=== PATIENT | male | born 1945 | race Caucasian/White ===

== ENCOUNTER 2017-02-23 19:30 | Inpatient (IN) | payer MEDICARE ==
[~2017-02-23] VITALS: Ht 175.3 cm; Wt 84.2 kg
[2017-02-23 19:29] VITALS: BP 198/80; PULSE 89; RESP 37; O2SAT 98
[~2017-02-23 19:30] MED LIST: ALBU18HF INHALATION; ALBU2.5V4 INHALATION; ASPI325T32 PO; CEFP200T3 PO; CHOL400T PO; FORM12CA IH; IPRA4AER IH; LIP40 PO; LISI-571 PO; LORA1TAB PO; METO25TA6 PO; OMEP20CA11 PO; PRE10 PO; SULF1TAB7 PO; SYMINH IH; ZIT250 PO
[2017-02-23] MEDS ORDERED: Albuterol 2.5 mg/3 mL Inhalation Solution NEB ONE (19:33)
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
[2017-02-23] MEDS ORDERED: Albuterol-Ipratropium 3 mL Inhalation Solution NEB ONE (19:40)
[2017-02-23] MEDS ORDERED: MethylprednisoLONE Sodium Succinate 62.5 mg/mL 2 mL Inj IVPUSH ONE (19:40)
[2017-02-23] MEDS ORDERED: Magnesium Sulf 2 Gm/50mL Water 2 GM in IV Premix 1 EACH IV ONE (19:40)
[2017-02-23] MEDS ORDERED: Azithromycin Inj 500 MG in Dextrose 5% w/Vial Mate 250 ML IV ONE ×2 (19:40→23:55)
[2017-02-23 19:46] VITALS: RESP 34; O2SAT 98
[2017-02-23 19:51] VITALS: PULSE 90; RESP 32; O2SAT 98
[2017-02-23 19:53] LABS: BASOPHILS % (AUTO) 0.3 % (0-3); EOSINOPHILS % (AUTO) 1.3 % (0-5); MONOCYTES % (AUTO) 8.8 % (4-12); Mean Corpuscular Hemoglobin 27.2 pg (27.0-35.0); Mean Corpuscular Volume 86.8 fL (81-100); NEUTROPHILS % (AUTO) 68.9 % (40-74); Platelet Count 197 bil/L (150-400)
--- NOTE | 2017-02-23 20:03 | ABG ---
DateTimeAnalyzed 19:55:00 -_ pH ____7.288 - 7.350 7.450 pCO2 ___62.9__ -mmHg 35.0 45.0 pO2 165 -mmHg 69.0 116 HCO3- ___29.2__ -mmol/L 22.0 26.0 ABE ____1.5__ -mmol/L -2.0 2.0 tHb ___13.4__ -g/dL 12.0 18.0 O2Hb ___97.1__ -% COHb ____0.7__ -% 0.0 1.5 MetHb ____1.0__ -% 0.4 1.5 sO2 ___98.8__ -% 25.0 FIO2 ___28.0__ -% CPAP ___12.0__ -cmH2O PEEP ____6.0__ -cmH2O Set_RR ___18.0__ -b/min Drawn By MM - Date/Time Notified____ 20:02:00 -_ Spontaneous_RR ___32.0__ -b/min Oxygen Device 1 ____BIPAP - Notified By MM - Notified Whom DR ANDELIN - B 758 -mmHg tO2 ___18.6__ -Vol% Lito test _Positive -
[2017-02-23 20:07] LABS: Magnesium 1.9 mg/dL (1.6-2.6)
[2017-02-23 20:18] LABS: TROPONIN T < 0.010 ug/L (0.0-0.011)
--- NOTE | 2017-02-23 20:19 | DRSVH ---
PROCEDURE: X-RAY CHEST ONE VIEW, PORTABLE ([id number]) INDICATIONS: SHORTNESS OF BREATH, wheezing TECHNIQUE: One view of the chest was acquired. COMPARISON: [facility], CR, XR CHEST 1VW (PORTABLE), 06/11/2016, 15:32. FINDINGS: Surgical changes and devices: None. Lungs and pleura: Chronic interstitial changes are present. Areas of nodularity in the upper lobes bi laterally are unchanged compared to prior exam. Hyperexpansion is present suggestive of COPD. Mediastinum: Mediastinal contours appear normal. Heart size is normal. Bones and chest wall: No suspicious bony lesions. Overlying soft tissues appear unremarkable. IMPRESSION: Chronic changes without acute pulmonary process. Dictated by: Amanda Brown M.D. on 02/23/2017 at 20:17 Approved by: Amanda Brown M.D. on 02/23/2017 at 20:17
[2017-02-23 21:15] VITALS: BP 131/65; PULSE 89; RESP 26; O2SAT 94
[2017-02-23] MEDS ORDERED: Ondansetron 2 mg/mL 2 mL Inj IVPUSH PRN (22:35)
[2017-02-23] MEDS ORDERED: Polyethylene Glycol (PEG) 17 Gm Powder PO PRN (22:35)
[2017-02-23] MEDS ORDERED: Alum-Mag Hydrox-Simeth 30 mL Suspension PO PRN (22:35)
[2017-02-23 23:31] VITALS: BP 133/69; PULSE 70; RESP 24; O2SAT 95
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
[2017-02-24] VITALS (16 sets, daily range): BP systolic 117–147; BP diastolic 69–77; PULSE 66–104; RESP 20–28; O2SAT 90–96
[2017-02-24] MEDS: Albuterol-Ipratropium 3 mL Inhalation Solution NEB SCH ×6 (00:30→21:28)
[2017-02-24] MEDS: Heparin 5,000 Unit/mL Inj SUBQ SCH ×3 (01:14→17:23)
--- NOTE | 2017-02-24 06:15 | NUR ---
Admit note Pt. received from ED to Room 2020 via gurney, transferred to bed on slider board. BiPap in place to support respiratory needs, RT at bedside. MD here to assess (Dr. Mcnamara). A/O, verbalizes needs clearly. Denies pain or discomfort. VSS. Tele:SR in 70's with IVCD.
[2017-02-24] MEDS: predniSONE 20 mg Tablet PO SCH (07:47)
[2017-02-24] MEDS ORDERED: predniSONE 20 mg Tablet PO SCH (08:30)
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
--- NOTE | 2017-02-24 19:21 | NUR ---
Oxygen/Activity Pt removed from Bipap by RT and placed on 2L NC. Pt sats in low 90s for this shift, pt also demonstrates pursed lip breathing, but states that he has no SOB or discomfort while he is at rest. Pt was encouraged to start to move around in bed. Pt agreed to sitting up at edge of bed to eat evening meal. At this writing pt had not received his evening meal. Nightshift RN was made aware of pt's plans.
[2017-02-25] MEDS: Albuterol-Ipratropium 3 mL Inhalation Solution NEB SCH ×3 (00:30→08:13)
[2017-02-25] MEDS: Heparin 5,000 Unit/mL Inj SUBQ SCH ×2 (00:49→08:30)
[2017-02-25 03:31] VITALS: BP 150/80; PULSE 79; RESP 24; O2SAT 97
[2017-02-25 04:19] LABS: BASOPHILS % (AUTO) 0.1 % (0-3); EOSINOPHILS % (AUTO) 0.1 % (0-5); MONOCYTES % (AUTO) 8.8 % (4-12); Mean Corpuscular Hemoglobin 26.9 pg (27.0-35.0); Mean Corpuscular Volume 84.8 fL (81-100); NEUTROPHILS % (AUTO) 75.1 % (40-74); Platelet Count 171 bil/L (150-400)
[2017-02-25 04:43] VITALS: PULSE 79; RESP 20; O2SAT 96
--- NOTE | 2017-02-25 05:45 | NUR ---
Respiratory/Activity A/O, denies pain or discomfort. Tolerating 2L NC, with Spo2 90-92% when awake. Continues purse lip breathing, indicates new accounts banking representative of normal baseline at home with Sp02 90-93%. Encouraged pt. to increase activity, up after meal to chair visiting - pt tolerates activity and no change in respiratory status. Rested for extended period. VSS. Tele: SR with IVCD, in 70's.
[2017-02-25] MEDS ORDERED: PRE20 PO (07:56)
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
[2017-02-25 08:13] VITALS: PULSE 74; RESP 24; O2SAT 92
[2017-02-25 08:52] VITALS: BP 150/71; PULSE 99; RESP 24; O2SAT 90
[2017-02-25] MEDS: predniSONE 20 mg Tablet PO SCH (08:55)
[2017-02-25 10:19] VITALS: PULSE 81
--- NOTE | 2017-02-25 11:32 | NUR ---
Social Work: Discharge/Multidisciplinary Rounds D: Pt discussed in multidisciplinary rounds; the patient is medically stable for discharge home with no social needs. Capacity for self-care reviewed; no concerns identified at this time. BOOT REPAIRER met with the patient at bedside to confirm discharge plan. patient states that he agrees with the plan to d/c home and stated to BOOT REPAIRER previously that his MIL is transporting him. Patient identifies no concerns about discharge. EMR reviewed; pt ambulating I to the bathroom. Patient uses a scooter at home but is capable of short distance ambulation. A: Pt who is I at baseline with all ADLs and self-care. P: Anticipate pt to discharge home today via POV and no sw needs. EVERETT Flor
--- NOTE | 2017-02-25 12:44 | NUR ---
DISCHARGE The pt left the unit at 1130 with his and a [employer]STRU[employer] transport. The pt left with all his belongings, including his packet of discharge paperwork. The pt verbalized understanding of all discharge teaching presented. The pt left the unit A&Ox3 with VSS.
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
== END 2017-02-25 11:56 | disposition home or self-care (01) | DRG 189 ==
LOC: SED 19:30 → PCC 23:08
PROVIDERS: ADMIT Hospitalist; ATTEND Hospitalist
PROC: 4A033R1 Measurement of Arterial Saturation, Peripheral, Percutaneous Approach (ICD-10-PCS; principal; 2017-02-23)
DX: J96.21 Acute and chronic respiratory failure with hypoxia (principal); J44.1 Chronic obstructive pulmonary disease with (acute) exacerbation; E87.2 Acidosis; T59.811A Toxic effect of smoke, accidental (unintentional), initial encounter; J70.5 Respiratory conditions due to smoke inhalation; Z99.81 Dependence on supplemental oxygen; Z79.52 Long term (current) use of systemic steroids; E78.5 Hyperlipidemia, unspecified; K21.9 Gastro-esophageal reflux disease without esophagitis; I25.10 Atherosclerotic heart disease of native coronary artery without angina pectoris; J96.22 Acute and chronic respiratory failure with hypercapnia

== ENCOUNTER 2017-03-08 17:36 | Inpatient (IN) | payer MEDICARE, MEDICAID ==
[~2017-03-08] VITALS: Ht 175.3 cm; Wt 88.4 kg
[2017-03-08] VITALS (8 sets, daily range): BP systolic 124–142; BP diastolic 55–77; PULSE 72–89; RESP 25–37; O2SAT 91–98
[~2017-03-08 17:36] MED LIST changes: -LIP40 PO; +PRE20 PO
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
[2017-03-08] MEDS ORDERED: Albuterol-Ipratropium 3 mL Inhalation Solution NEB ONE (18:20)
[2017-03-08] MEDS ORDERED: MethylprednisoLONE Sodium Succinate 62.5 mg/mL 2 mL Inj IVPUSH ONE (18:20)
[2017-03-08] MEDS ORDERED: Albuterol 2.5 mg/3 mL Inhalation Solution NEB ONE (18:20)
[2017-03-08 18:31] LABS: BASOPHILS % (AUTO) 0.5 % (0-3); EOSINOPHILS % (AUTO) 0.8 % (0-5); MONOCYTES % (AUTO) 8.3 % (4-12); Mean Corpuscular Hemoglobin 26.9 pg (27.0-35.0); Mean Corpuscular Volume 86.3 fL (81-100); NEUTROPHILS % (AUTO) 70.4 % (40-74); Platelet Count 163 bil/L (150-400)
--- NOTE | 2017-03-08 18:51 | DRSVH ---
PROCEDURE: X-RAY CHEST ONE VIEW, PORTABLE ([id number]) INDICATIONS: dyspnea TECHNIQUE: One view of the chest was acquired. COMPARISON: [facility], CR, XR CHEST 1VW (PORTABLE), 06/11/2016, 15:32. FINDINGS: Surgical changes and devices: None. Lungs and pleura: Right apical scarring is unchanged. Areas of nodular opacities within the lung base s are also unchanged. Mediastinum: Mediastinal contours appear normal. Heart size is normal. Bones and chest wall: No suspicious bony lesions. Overlying soft tissues appear unremarkable. IMPRESSION: No acute pulmonary process. Dictated by: Amanda Brown M.D. on 03/08/2017 at 18:50 Approved by: Amanda Brown M.D. on 03/08/2017 at 18:50
[2017-03-08 19:02] LABS: TROPONIN T < 0.010 ug/L (0.0-0.011)
[2017-03-08 20:58] LABS: APPEARANCE,URINE CLEAR (CLEAR,HAZY); COLOR,URINE YELLOW (YELLOW); OCCULT BLOOD,URINE NEGATIVE (NEGATIVE); PH,URINE 5.5 (5.0-8.0); UROBILINOGEN,URINE NORMAL (NORMAL)
[2017-03-08] MEDS ORDERED: Albuterol-Ipratropium 120 Spray 4 Gm Inhaler INHALATION PRN (21:25)
[2017-03-08] MEDS ORDERED: _Albuterol 2.5 mg/3 mL Neb NEB PRN (21:25)
[2017-03-08] MEDS ORDERED: Alum-Mag Hydrox-Simeth 30 mL Suspension PO PRN (21:25)
[2017-03-08] MEDS ORDERED: Ondansetron 2 mg/mL 2 mL Inj IVPUSH PRN (21:25)
[2017-03-08] MEDS ORDERED: LORazepam 1 mg Tablet PO PRN (21:25)
[2017-03-08] MEDS ORDERED: Polyethylene Glycol (PEG) 17 Gm Powder PO PRN (21:25)
[2017-03-08] MEDS ORDERED: Albuterol 2.5 mg/3 mL Inhalation Solution NEB PRN (21:33)
--- NOTE | 2017-03-08 22:06 | PCM.HPMED ---
Subjective Date of Service Mar 08, 2017 Primary Provider: Admitting Physician: Brandon Ko MD Primary Care Physician: Erick Chatterjee MD Attending Physician: Brandon Ko MD Chief Complaint: Shortness of Breath History of Present Illness: Patient is a 71 y/o male with past medical history of CAD, HTN, COPD with 2.5L home O2, and hyperlipidemia who presents after an episode of shortness of breath today. Patient reports he started feeling short of breath this morning at 11:00 while watching football at the local [employer]. Patient reports to have drank about 5 beers throughout the course of the day and when he was home at about 16:00, he became increasingly short of breath and felt weak and diaphoretic. Patient's called EMS. Patient denies any CP, cough , WOODALL, N/V/D, or urinary symptoms. He has 2.5L home O2 that he takes with him everywhere, and this was no longer helping him. Patient has been hospitalized multiple times secondary to COPD exacerbation, with most recently being two weeks ago. Patient has previously been intubated secondary to acute respiratory failure from COPD exacerbation, with the most recent being approximately two years ago. In the ED patient was given Albuterol Neb, Duoneb, and one dose of 125mg Solu- Medrol and placed on a BiPap FiO2 50%. Review of Systems: ROS reviewed and otherwise negative unless noted above. Allergies Coded Allergies: MUSHROOM (Verified Allergy, Unknown, hives, 12/23/15) onion (Verified Allergy, Unknown, bad heartburn, 12/23/15) Home Medications Aspirin (Aspirin) 325 Mg Tablet 325 MG PO DAILY Azithromycin (Zithromax) 250 Mg Tablet 500 MG PO MWF Budesonide/Formoterol 160-4.5 mcg Inh (Symbicort 160-4.5 mcg Inh) 1 Puff Inha 2 PUFF IH BID Cefpodoxime Proxetil (Cefpodoxime Proxetil) 200 Mg Tablet 200 MG PO BID Cholecalciferol (Vitamin D3) (Vitamin D3) 400 Unit Tablet 1,200 UNIT PO DAILY Formoterol Fumarate (Foradil) 12 Mcg Cap.w.dev 12 MCG IH BID Lisinopril (Lisinopril) 5 Mg Tablet 5 MG PO DAILY Metoprolol Tartrate (Metoprolol Tartrate) 25 Mg Tablet 12.5 MG PO BID Omeprazole (Omeprazole) 20 Mg Capsule.dr 20 MG PO DAILY Prednisone (PredniSONE) 10 Mg Tablet 10 MG PO DAILY Prednisone (PredniSONE) 20 Mg Tablet 60 MG PO DAILY Sulfamethoxazole/Trimeth 800-160 mg (Bactrim DS) 1 Each Tablet 1 TABLET PO BID PMH COPD on 2.5 L oxygen and chronic Prednisone history of respiratory failure secondary to COPD, with several previous hospital admissions MAC infection HTN CT in the 1993 rheumatic fever emphysema asthma Coronary artery disease GERD Hyperlipidemia Surgical History Cardiac stenting in the 1993 Family History Noncontributory Social History Hx Alcohol Use: Yes Alcoholic Drinks Per Day: approx 8 beers/week Hx Substance Use: No Hx Tobacco Use: Yes (one pack every 2 days) Smoking Status: Former Smoker (Quit 8 years ago. 57 years at 1.5 packs per day) Years of Smokin Living Arrangement: with Family Exam Vital Signs Vital Sign - Last Date Time Temp Pulse Resp B/P Pulse Ox O2 Delivery O2 Flow Rate FiO2 03/08/17 21:41 28 124/55 97 03/08/17 20:04 50 03/08/17 19:00 72 Nasal Cannula 4 03/08/17 17:47 36.7 Exam Constitutional: Awake, alert and oriented x3, no acute distress Head: normocephalic and atraumatic Eyes: pupils equal round and reactive to light, No scleral icterus Heart: regular rate and rhythm, no murmurs, rubs, or gallops. 1+ pitting edema bilaterally Lungs: Diffuse wheeze throughout, no rales or rhonchi. Patient on BiPap oxygen support ABD: soft, nontender, bowel sounds present throughout Musculoskeletal: moves all four extremities appropriately Neuro: CN II-XII intact. no focal deficits. Skin: warm, dry, no rash Psych: appropriate mood and affect. Lab and Diagnostics Labs Item Value Date Time Red Blood Count 4.54 mil/mm3 03/08/171814 Mean Corpuscular Volume 86.3 fL 03/08/171814 Mean Corpuscular Hemoglobin 26.9 pg L 03/08/171814 Mean Corpuscular Hemoglobin Concent 31.1 % L 03/08/171814 Red Cell Distribution Width 15.7 % H 03/08/171814 Neutrophils (%) (Auto) 70.4 % 03/08/171814 Lymphocytes (%) (Auto) 19.8 % 03/08/171814 Monocytes (%) (Auto) 8.3 % 03/08/171814 Eosinophils (%) (Auto) 0.8 % 03/08/171814 Basophils (%) (Auto) 0.5 % 03/08/171814 Lactic Acid Level 3.4 mmol/L H 03/08/171814 Estimat Glomerular Filtration Rate 76 mL/min 03/08/171814 Total Bilirubin 0.3 mg/dL 03/08/171814 Aspartate Amino Transf (AST/SGOT) 36 U/L 03/08/171814 Alanine Aminotransferase (ALT/SGPT) 32 U/L 03/08/171814 Alkaline Phosphatase 127 U/L 03/08/171814 Troponin T < 0.010 ug/L 03/08/171814 Pro-B-Type Natriuretic Peptide 1099 pg/mL H 03/08/171814 Total Protein 6.0 g/dL L 03/08/171814 Albumin 3.7 g/dL 03/08/171814 Procalcitonin 0.03 ng/mL 03/08/171814 Result Diagram: 03/08/17181403/08/171814 Microbiology Blood Cultures - Pending Resp PCR - pending Influenza - Pending X-Rays, CTs and MRIs PROCEDURE: X-RAY CHEST ONE VIEW, PORTABLE IMPRESSION: No acute pulmonary process. Dictated by: Amanda Brown M.D. on 03/08/2017 at 18:50 12-lead ECG NSR HR 72 Assessment & Plan Patient is a 71 y/o male with past medical history of CAD, HTN, COPD with 2.5L home O2, and hyperlipidemia who presents after an episode of shortness of breath today -Acute on Chronic Hypoxic Respiratory Failure, POA, Active, Stable - Patient came in with a RR of 36 and requiring 5L NC and needing to be transitioned to BiPap due to h/o COPD. - ABG shows pH 7.351 with hypercapnea 50.3 and an elevated bicarb of 27 - Continue BiPap - Given 125 Solumedrol IV in ED - Prednisone 60mg BID - Continue home Albuterol - DuoNebs PRN - Albuterol 1mg PRN - Continue home dose Advair -Acute Exacerbation of Chronic Obstructive Pulmonary Disease, POA, Active, Stable - Patient came in short of breath with increased need for ancillary oxygen and placed on BiPap in ED. Patient has been intubated for COPD exacerbations twice previously - Continue BiPap - Given 125 Solumedrol IV in ED - Prednisone 60mg BID - Continue home Albuterol - DuoNebs PRN - Albuterol 1mg PRN -Continue home dose Advair - Respiratory Viral PCR - Influenza screen - Azithromycin 500mg PO daily - ABGs PRN if clinical picture calls for them. - Acute Lactic Acidosis, POA, Stable, Active - Patient admitted with LA of 3.4, likely secondary to tissue hypoxia - Monitor LA and trend until normalized - treat underlying cause of respiratory failure - History of HTN, Chronic, Stable - Continue home dose of Lisinopril - Continue home dose of Metoprolol PATIENT IS FULL CODE Due to Complexity of case and level of care patient is admitted under inpatient status with an expected length of stay greater than 2 midnights. Pain Evaluation: Adequate Pain Control GI Prophylaxis: Proton Pump Inhibitor VTE Prophylaxis Indicated: Meets Criteria for Anticoag Therapy VTE Prophylaxis: Sub-Q Heparin (Unfractionated), SCDs VTE Mechanical Devices: Intermittant Pneumatic CD Resuscitation Status: CPR: Attempt Resuscitation Attending Statement The patient was seen and examined together with Dr. Zamora on 03/08 and I agree with the history, exam and plan as outlined in the note above. Jessee Zamora DO Mar 08, 2017 21:52 Brandon Ko MD Mar 09, 2017 06:29
[2017-03-08] MEDS ORDERED: Furosemide 10 mg/mL 4 mL Inj IVPUSH ONE (22:45)
--- NOTE | 2017-03-08 22:52 | ABG ---
DateTimeAnalyzed 22:43:00 -_ pH ____7.351 - 7.350 7.450 pCO2 ___50.3__ -mmHg 35.0 45.0 pO2 ___77.0__ -mmHg 80.0 100 HCO3- ___27.1__ -mmol/L 22.0 26.0 ABE ____1.3__ -mmol/L -2.0 2.0 tHb ___12.3__ -g/dL 12.0 18.0 O2Hb ___92.9__ -% COHb ____0.7__ -% 1.5 MetHb ____1.1__ -% 0.4 1.5 sO2 ___94.6__ -% 95.0 FIO2 ___30.0__ -% CPAP ___16.0__ -cmH2O PEEP ____6.0__ -cmH2O Set_RR ___14.0__ -b/min Drawn By MM - Date/Time Notified____ 22:51:00 -_ Spontaneous_RR ___25.0__ -b/min Oxygen Device 1 ____BIPAP - Notified By MM - Notified Whom DR RENAY - B 760 -mmHg tO2 ___16.1__ -Vol% Lito test N/A -
--- NOTE | 2017-03-08 23:09 | NUR ---
admit note: pt. admitted for increased sob, ground level fall, pt. has hx copd, was just hospitalized on 02-23-17 for similar resp. issues. Pt. currently on bipap sats 94% heart rate 80, also noted pt. has yellow, watery, discharge both eyes. Pt. states he has not had a cold recently. pt. just given one time dose 40mg iv lasix.
[2017-03-09] VITALS (12 sets, daily range): BP systolic 92–142; BP diastolic 51–82; PULSE 80–93; RESP 17–28; O2SAT 92–98
[2017-03-09] MEDS: Heparin 5,000 Unit/mL Inj SUBQ SCH ×3 (00:41→17:43)
[2017-03-09] MEDS: Albuterol-Ipratropium 3 mL Inhalation Solution NEB SCH ×4 (01:41→19:30)
[2017-03-09 02:35] LABS: Mean Corpuscular Hemoglobin 26.5 pg (27.0-35.0); Mean Corpuscular Volume 85.1 fL (81-100)
[2017-03-09] MEDS: Pantoprazole 20 mg ER24 Tablet PO SCH ×2 (08:29→20:18)
[2017-03-09] MEDS ORDERED: predniSONE 20 mg Tablet PO SCH ×4 (08:30→10:10)
[2017-03-09] MEDS ORDERED: predniSONE 10 mg Tablet PO SCH (08:30)
--- NOTE | 2017-03-09 10:20 | PCM.PNMED ---
Subjective Date of Service Mar 09, 2017 Subjective Patient seen and examined this morning. Resting comfortably in bed. in the room. Patient is doing some pursed lip breathing but saturating well on 2 L nasal cannula. No nursing concerns. Exam Vital Signs Vital Sign - Last Date Time Temp Pulse Resp B/P Pulse Ox O2 Delivery O2 Flow Rate FiO2 03/09/17 10:11 80 03/09/17 08:23 36.5 24 142/82 95 BiPAP 30 03/08/17 19:00 4 Intake and Output 03/08/17 03/08/17 03/09/17 Cumulative From/Thru 14:58 22:58 06:58 03/08/17 17:47 - 03/09/17 06:21 Intake Total 0 ml 0 ml 0 ml Output Total 1900 ml 1900 ml Balance 0 ml -1900 ml -1900 ml Intake Oral 0 ml 0 ml 0 ml Output Urine Total 1900 ml 1900 ml Exam General: No acute distress, well-developed, well-nourished, appropriately interactive HEENT: Normocephalic, atraumatic. External ears without defect. Neck: Supple with full range of motion. No jugular venous distension. Cardiovascular: Regular rate and rhythm with no murmurs, rubs, or gallops appreciated Pulmonary: Wheezes heard throughout, no crackles. Reduced air movement. Pursed lip breathing. Abdomen: Soft, nontender, nondistended. Extremities: Clubbing noted on fingernails. No cyanosis. Skin: Normal temperature, turgor, and texture; no rash, ulcers, or subcutaneous nodules appreciated. Neurological: Cranial nerves grossly intact. Normal muscle strength, tone, and bulk. Psychiatric: Normal mood and affect. Alert and oriented to person, place, and time. IVs and Medications Medications Reviewed: Medications were reviewed in detail Lab and Diagnostics Result Diagram: 03/09/1721903/09/17 022 Microbiology Blood Cultures - Pending Resp PCR - pending Influenza - Pending X-Rays, CTs and MRIs PROCEDURE: X-RAY CHEST ONE VIEW, PORTABLE IMPRESSION: No acute pulmonary process. Dictated by: Amanda Brown M.D. on 03/08/2017 at 18:50 12-lead ECG NSR HR 72 Additional Diagnostics DateTimeAnalyzed 22:43:00 -_ pH ____7.351 - 7.350 7.450 pCO2 ___50.3__ -mmHg 35.0 45.0 pO2 ___77.0__ -mmHg 80.0 100 HCO3- ___27.1__ -mmol/L 22.0 26.0 ABE ____1.3__ -mmol/L -2.0 2.0 tHb ___12.3__ -g/dL 12.0 18.0 O2Hb ___92.9__ -% COHb ____0.7__ -% 1.5 MetHb ____1.1__ -% 0.4 1.5 sO2 ___94.6__ -% 95.0 FIO2 ___30.0__ -% CPAP ___16.0__ -cmH2O PEEP ____6.0__ -cmH2O Set_RR ___14.0__ -b/min Drawn By MM - Date/Time Notified____ 22:51:00 -_ Spontaneous_RR ___25.0__ -b/min Oxygen Device 1 ____BIPAP - Notified By MM - Notified Whom DR RENAY - B 760 -mmHg tO2 ___16.1__ -Vol% Lito test N/A - Assessment & Plan Patient is a 71 y/o male with past medical history of CAD, HTN, COPD with 2.5L home O2, and hyperlipidemia who presented after an episode of shortness of breath -Acute on Chronic Hypoxic Respiratory Failure, POA, Active, Stable - Patient came in with a RR of 36 and requiring 5L NC and needing to be transitioned to BiPap due to h/o COPD. - ABG on 03/06/17 shows pH 7.351 with hypercapnea 50.3 and an elevated bicarb of 27 - Continue on nasal cannula 2 L. BiPAP as necessary. - Given 125 Solumedrol IV in ED - Prednisone 60 mg daily - DuoNebs every 6hrs - Albuterol 1mg PRN - Continue home dose Advair - Hold home Spiriva as patient is receiving this via duo nebs -Acute Exacerbation of Chronic Obstructive Pulmonary Disease, POA, Active, Stable - Patient came in short of breath with increased need for ancillary oxygen and placed on BiPap in ED. Patient has been intubated for COPD exacerbations twice previously - Given 125 Solumedrol IV in ED - Continue home Albuterol - DuoNebs q 6 hours - Albuterol 1mg PRN - Continue home dose Advair - Respiratory Viral PCR - Influenza screen - Azithromycin 500mg PO daily - Mucinex every 12 hours - ABGs PRN if clinical picture calls for them. - Acute Lactic Acidosis, POA, resolved - Patient admitted with LA of 3.4, likely secondary to tissue hypoxia, 1.9 on - treat underlying cause of respiratory failure - History of HTN, Chronic, Stable - Continue home dose of Lisinopril - Continue home dose of Metoprolol PATIENT IS FULL CODE GI Prophylaxis: Proton Pump Inhibitor VTE Prophylaxis: Sub-Q Heparin (Unfractionated), SCDs VTE Mechanical Devices: Intermittant Pneumatic CD Resuscitation Status: CPR: Attempt Resuscitation Attending Statement The patient was seen and examined together with Dr. Marsh on 03/09/17 and I have added additional information to the note above. Francois Marsh DO Mar 09, 2017 10:20 Eli Thomas DO Mar 09, 2017 12:31
--- NOTE | 2017-03-09 11:29 | NUR ---
Social Work: Initial Assessment/Multidisciplinary Rounds D: Per EMR review, pt is a 71 year old male admitted for COPD exacerbation. Pt is Medicare with [facility] and [facility] benefits. Pt has no LTC or supplemental insurance. Pt states he wants to use his Medicare insurance. PCP is Erick Chatterjee MD. NOK is María Rizzo, , . Advanced directives not complete- pt declined information and states he received it at last admission/ NO RA Score entered at this time. Pt is a readmission and was discharged home from [facility] on 02/25 with no sw needs. Pt discussed in Multidisciplinary rounds. Capacity for self care discussed; no concerns or needs identified at this time. HYDRO ELECTRIC STATION OPERATOR met with the patient at bedside. Social work/dcp role explained, contact information and discharge planning checklist provided. See initial assessment. Pt lives alone, in a single story apartment in [place]. Patient is from his but states she is still supportive and is his NOK/identified support person. Pt still uses an electric scooter for mobility but is I with transfers and all ADLs. Pt is able to ambulate short distances I. Patient has never require SNF but has a history with [facility] for RN and PT. Patient anticipates no discharge needs and states a family member will transport him home. The patient's scooter is not at bedside. Patient states he can transfer to the car and get into his house without the use of the scooter. A: Pt who is I at baseline and lives alone in . P: Anticipate pt to discharge home via POV once medically stable; HYDRO ELECTRIC STATION OPERATOR to continue to follow to assess for unmet needs. EVERETT Flor Addendum: 03/09/17 at 1132 by LUIS HERNANDEZ Amended: Links added.
[2017-03-09] MEDS: Fluticasone-Salmeterol 500-50 Inhaler INHALATION SCH ×2 (11:39→20:20)
--- NOTE | 2017-03-09 18:33 | NUR ---
Resp/Diaphoresis Pt weaned from Bipap this morning to 2.5L NC. Pt sats 95-96% at that dosage. Pt O2 decreased to 1.5L NC as pt is CO2 retainer. Pt's O2 sats decreased to 92-94%. Pt displays no dyspnea at rest. Pt has been on bedrest for this shift. Pt states that he has recently been experiencing "hot flashes" he does not understand why. Pt states that he has discussed these episodes with his PCP. During afternoon assessment pt stated that he was having a hot flash, pt was noted to have become mildly diaphoretic, VSS.
[2017-03-09] MEDS: guaiFENesin 600 mg ER12 Tablet PO SCH (20:18)
[2017-03-10] MEDS: Heparin 5,000 Unit/mL Inj SUBQ SCH ×2 (00:52→10:08)
--- NOTE | 2017-03-10 01:06 | NUR ---
BP/Held Metoprolol/Home Meds BP low 90s/ low 50s at start of shift, pt denies symptoms. HS metoprolol held, aware. Pt states either his home lisinopril or metoprolol were recently DC'd. Pt states he will verify which one w/ his in the morning as these both continue on his med list.
[2017-03-10 02:46] VITALS: RESP 20; O2SAT 96
[2017-03-10] MEDS: Albuterol-Ipratropium 3 mL Inhalation Solution NEB SCH ×2 (02:46→08:49)
[2017-03-10 04:30] VITALS: BP 108/64; PULSE 98; RESP 20; O2SAT 94
--- NOTE | 2017-03-10 05:32 | ABG ---
DateTimeAnalyzed 05:24:00 -_ pH ____7.443 - 7.350 7.450 pCO2 ___47.5__ -mmHg 35.0 45.0 pO2 ___65.6__ -mmHg 80.0 100 HCO3- ___32.0__ -mmol/L 22.0 26.0 ABE ____7.2__ -mmol/L -2.0 2.0 tHb ___11.7__ -g/dL 12.0 18.0 O2Hb ___91.2__ -% COHb ____0.9__ -% 1.5 MetHb ____1.0__ -% 0.4 1.5 sO2 ___92.9__ -% 95.0 FIO2 ___28.0__ -% Drawn By MM - Date/Time Notified____ 05:32:00 -_ Liter_Flow ____2.0__ -L/min Oxygen Device 1 __CANNULA - Notified By MM - Notified Whom DR NAYE - B 761 -mmHg tO2 ___15.0__ -Vol% Lito test _Positive -
[2017-03-10 05:46] LABS: Mean Corpuscular Hemoglobin 26.4 pg (27.0-35.0); Mean Corpuscular Volume 84.3 fL (81-100)
[2017-03-10] MEDS ORDERED: predniSONE 20 mg Tablet PO SCH (08:30)
[2017-03-10] MEDS ORDERED: 0.9% Sodium Chloride 1,000 ML IV SCH (08:35)
--- NOTE | 2017-03-10 08:45 | NUR ---
[facility] and this patient is non service connected but holds MCR A B and DSHS
[2017-03-10 08:48] VITALS: PULSE 105; RESP 24; O2SAT 91
[2017-03-10 09:27] VITALS: BP 105/50; PULSE 90; RESP 28; O2SAT 91
[2017-03-10] MEDS: Pantoprazole 20 mg ER24 Tablet PO SCH (10:01)
[2017-03-10] MEDS: Fluticasone-Salmeterol 500-50 Inhaler INHALATION SCH (10:01)
[2017-03-10] MEDS: guaiFENesin 600 mg ER12 Tablet PO SCH (10:02)
[2017-03-10] MEDS ORDERED: PRE10 PO (11:06)
--- NOTE | 2017-03-10 11:18 | PCM.DIMED ---
Francois Marsh DO 03/10/17 1114: Discharge Instructions Date of Service Mar 10, 2017 Dates of Hospitalization Mar 08, 2017 at 21:34 Discharge Diagnosis Discharge Diagnosis COPD exacerbation Hypertension Medication Instructions Additional med instructions We are sending you home with a taper of prednisone. Start by taking 6 pills a day, which is 60 mg. Reduce the quantity by 1 pill every 3 days until they are gone. After this he can resume your normal daily prednisone dose. Continue to take your other regularly prescribed medications as directed including your azithromycin. Test Results Test Results Your chest x-ray was consistent with a COPD exacerbation. Diet Discharge Diet: Heart Healthy Activity Discharge Activity: Limited until seen by PCP Call your provider Call your provider for: Shortness of breath, Bleeding, Chest pain, Vomitting, Excessive diarrhea, Weakness (unilateral) Patient Instructions Patient Instructions Please follow-up with your primary care physician in 1-2 weeks. Continue your home medications, and seek medical attention if you start to have worsening shortness of breath, chest pain, dizziness. Follow-up Provider: AYAKA JEFF MD Follow-up with PCP in: 1 week Jono Mcdaniel DO 03/11/17 0725: Discharge Instructions Attending's Statement Read and agree Francois Marsh DO Mar 10, 2017 11:14 Jono Mcdaniel DO Mar 11, 2017 07:25
--- NOTE | 2017-03-10 11:29 | PCM.DC.MED ---
Discharge Summary Date of Service Mar 10, 2017 Dates of Hospitalization Date of Hospital Admission Mar 08, 2017 at 21:34 Date of Discharge: Mar 10, 2017 Providers: Admitting Physician: Brandon Ko MD Primary Care Physician: Ayaka Jeff MD Attending Physician: Jono Mcdaniel DO Diagnosis at Time of Discharge Diagnosis at Time of Discharge COPD exacerbation Hypertension Procedures XRay, CTs & MRIs PROCEDURE: X-RAY CHEST ONE VIEW, PORTABLE IMPRESSION: No acute pulmonary process. Dictated by: Amanda Brown M.D. on 03/08/2017 at 18:50 ECG 12 Lead NSR HR 72 Other Diagnostics DateTimeAnalyzed 05:24:00 -_ pH ____7.443 - 7.350 7.450 pCO2 ___47.5__ -mmHg 35.0 45.0 pO2 ___65.6__ -mmHg 80.0 100 HCO3- ___32.0__ -mmol/L 22.0 26.0 ABE ____7.2__ -mmol/L -2.0 2.0 tHb ___11.7__ -g/dL 12.0 18.0 O2Hb ___91.2__ -% COHb ____0.9__ -% 1.5 MetHb ____1.0__ -% 0.4 1.5 sO2 ___92.9__ -% 95.0 FIO2 ___28.0__ -% Drawn By MM - Date/Time Notified____ 05:32:00 -_ Liter_Flow ____2.0__ -L/min Oxygen Device 1 __CANNULA - Notified By MM - Notified Whom DR NAYE - B 761 -mmHg tO2 ___15.0__ -Vol% Lito test _Positive - Brief History Patient is a 71 y/o male with past medical history of CAD, HTN, COPD with 2.5L home O2, and hyperlipidemia who presented after an episode of shortness of breath on 03/08/2017. Patient reported he started feeling short of breath that morning at 11:00 while watching football at the local [employer]. Patient reports to have drank about 5 beers throughout the course of the day and when he was home at about 16:00, he became increasingly short of breath and felt weak and diaphoretic. Patient's called EMS. Patient denied any CP, cough, WOODALL, N/V/D, or urinary symptoms. He has 2.5L home O2 that he takes with him everywhere, and this was no longer helping him. Patient has been hospitalized multiple times secondary to COPD exacerbation, with most recently being two weeks previous. Patient has previously been intubated secondary to acute respiratory failure from COPD exacerbation, with the most recent being approximately two years ago. In the ED patient was given Albuterol Neb, Duoneb, and one dose of 125mg Solu- Medrol and placed on a BiPap FiO2 50%. He was admitted for acute on chronic hypoxic respiratory failure due to exacerbation of his COPD. In the hospital, patient received 60 mg of by mouth prednisone daily, DuoNeb every 2-4 hours, Advair, azithromycin 500 mg daily, oxygen by nasal cannula, and Mucinex every 12 hours. On day of discharge, patient's symptoms are controlled, and he states that he is back to baseline. He did not require BiPAP the night previously, he is ambulating independently without desaturating, and his blood gas showed a CO2 of 47. His vital signs were stable and he was afebrile. He was given an 18 day taper of oral prednisone and was instructed to resume his regularly prescribed medications. He should follow-up with his primary care physician 1-2 weeks. Hospital Course Please see below for detailed hospital course -Acute on Chronic Hypoxic Respiratory Failure, POA, resolved - Patient came in with a RR of 36 and requiring 5L NC and needing to be transitioned to BiPap due to h/o COPD. - ABG on 03/10/2017 showed a pH of 7.44, CO2 of 47, PO2 65, bicarbonate of 32 -Acute Exacerbation of Chronic Obstructive Pulmonary Disease, POA, resolved - Patient came in short of breath with increased need for ancillary oxygen and placed on BiPap in ED. Patient has been intubated for COPD exacerbations twice previously - Given 125 Solumedrol IV in ED - Continue home Albuterol - DuoNebs q 4 hours - Continue home dose Advair - Respiratory Viral PCR negative - Influenza screen negative - Azithromycin 500mg PO daily - Mucinex every 12 hours - Acute Lactic Acidosis, POA, resolved - Patient admitted with LA of 3.4, likely secondary to tissue hypoxia, 1.9 on - History of HTN, Chronic, Stable - Continue home dose of Lisinopril - Continue home dose of Metoprolol PATIENT IS FULL CODE Disposition: Home Exam Vital Signs (Last) Date Time Temp Pulse Resp B/P Pulse Ox O2 Delivery O2 Flow Rate FiO2 03/10/17 09:27 36.4 90 28 105/50 91 Nasal Cannula 03/10/17 08:48 1.50 03/09/17 08:23 30 Exam General: No acute distress, well-developed, well-nourished, appropriately interactive HEENT: Normocephalic, atraumatic. Neck: Supple with full range of motion. No jugular venous distension. No bruits. Cardiovascular: Regular rate and rhythm with no murmurs, rubs, or gallops appreciated Pulmonary: Faint wheezes throughout but improved, no crackles. Good air movement not using accessory respiratory muscles. Abdomen: Bowel tones present. Soft, nontender, nondistended. No hepatosplenomegaly or masses appreciated. Extremities: No clubbing, cyanosis, edema, or lymphadenopathy appreciated. Skin: Normal temperature, turgor, and texture; no rash, ulcers, or subcutaneous nodules appreciated. Neurological: Cranial nerves grossly intact. Normal muscle strength, tone, and bulk. Psychiatric: Normal mood and affect. Alert and oriented to person, place, and time. Test 03/08/17 18:15 03/08/17 20:40 03/09/17 02:20 03/10/17 05:10 Neutrophils (%) (Auto) 70.4% (40-74) Lymphocytes (%) (Auto) 19.8% (14-46) Monocytes (%) (Auto) 8.3% (4-12) Eosinophils (%) (Auto) 0.8% (0-5) Basophils (%) (Auto) 0.5% (0-3) Troponin T < 0.010ug/L (0.0-0.011) Pro-B-Type Natriuretic Peptide 1099pg/mL (0-376) Procalcitonin 0.03ng/mL (0.00-0.08) Urine Color Yellow (YELLOW) Urine Appearance Clear (CLEAR,HAZY) Urine pH 5.5 (5.0-8.0) Urine Specific [place] 1.025 (1.003-1.035) Urine Protein Negativemg/dL (NEG,TRACE) Urine Glucose (UA) Negativemg/dL (NEGATIVE) Urine Ketones Negativemg/dL (NEGATIVE) Urine Occult Blood Negative (NEGATIVE) Urine Nitrite Negative (NEGATIVE) Urine Bilirubin Negative (NEGATIVE) Urine Urobilinogen Normalmg/dL (NORMAL) Urine Leukocyte Esterase Negative (NEGATIVE) Urine RBC 0-2/hpf (0-2) Urine WBC 0-5/hpf (0-5) Urine Epithelial Cells Few/hpf (NONE-MOD) Urine Crystals None seen (NONE SEEN) Urine Bacteria Few/hpf (NONE-FEW) Urine Hyaline Casts None/lpf (NONE) Urine Granular Casts None seen (NONE SEEN) Urine Waxy Casts None seen (NONE SEEN) Urine Red Blood Cell Casts None seen (NONE SEEN) Urine White Blood Cell Casts None seen (NONE SEEN) Urine Mucus None seen (None Seen) Urine Trichomonas None seen (NONE SEEN) Urine Yeast None (NONE SEEN) Urinalysis Comment None Urine Culture Reflexed Not indicated Lactic Acid Level 1.9mmol/L (0.4-2.0) Sodium Level 139mEq/L (134-144) Potassium Level 3.7mEq/L (3.5-5.2) Chloride Level 99mEq/L (97-108) Carbon Dioxide Level 30mmol/L (18-29) Blood Urea Nitrogen 39mg/dL (8-27) Creatinine 1.23mg/dL (0.76-1.27) Estimat Glomerular Filtration Rate 61mL/min (>59) Glucose Level 128mg/dL (60-99) Calcium Level 8.2mg/dL (8.5-10.1) Total Bilirubin 0.4mg/dL (0.0-1.2) Aspartate Amino Transf (AST/SGOT) 24U/L (0-50) Alanine Aminotransferase (ALT/SGPT) 23U/L (0-44) Alkaline Phosphatase 114U/L (25-160) Total Protein 5.3g/dL (6.4-8.4) Albumin 3.6g/dL (3.4-5.0) Test 03/10/17 05:20 White Blood Count 13.2th/mm3 (3.8-10.1) Red Blood Count 4.39mil/mm3 (4.40-5.80) Hemoglobin 11.6g/dL (13.8-17.2) Hematocrit 37.0% (41.0-50.0) Mean Corpuscular Volume 84.3fL (81-100) Mean Corpuscular Hemoglobin 26.4pg (27.0-35.0) Mean Corpuscular Hemoglobin Concent 31.4% (32.0-37.0) Red Cell Distribution Width 15.8% (12.3-15.4) Platelet Count 143bil/L (150-400) Microbiology Results Blood Cultures - Pending Resp PCR - pending Influenza - Pending Discharge Medications Discharge Medications Aspirin (Aspirin) 325 Mg Tablet 325 MG PO DAILY (Reported) Azithromycin (Zithromax) 250 Mg Tablet 500 MG PO MWF (Reported) Budesonide/Formoterol 160-4.5 mcg Inh (Symbicort 160-4.5 mcg Inh) 1 Puff Inha 2 PUFF IH BID (Reported) Cholecalciferol (Vitamin D3) (Vitamin D3) 400 Unit Tablet 1,200 UNIT PO DAILY ( Reported) Formoterol Fumarate (Foradil) 12 Mcg Cap.w.dev 12 MCG IH BID (Reported) Lisinopril (Lisinopril) 5 Mg Tablet 5 MG PO DAILY (Reported) Metoprolol Tartrate (Metoprolol Tartrate) 25 Mg Tablet 12.5 MG PO BID (Reported ) Omeprazole (Omeprazole) 20 Mg Capsule.dr 20 MG PO DAILY (Reported) Prednisone (PredniSONE) 10 Mg Tablet 10 MG PO DAILY (Reported) Prednisone (PredniSONE) 10 Mg Tablet 10 MG PO DAILY Prescribed by: FRANCOIS COTA, DO As needed Albuterol Neb Soln (Albuterol Neb Soln) 2.5 Mg/3 Ml Vial.neb 2.5 MG INHALATION Q4H PRN PRN For Shortness of Breath (Reported) Albuterol Sulfate (Ventolin HFA Inhaler) 200 Puff/18 Gm Inhaler 1-2 PUFF INHALATION Q4H PRN PRN For Shortness of Breath (Reported) Albuterol/Ipratropium (Combivent Respimat Inhal [place]) 120 Spr/4 Gm Inhaler 1 PUFF IH QID PRN PRN For Shortness of Breath (Reported) Lorazepam (Lorazepam) 1 Mg Tablet 1 MG PO QID PRN PRN For Anxiety (Reported) Additional med instructions We are sending you home with a taper of prednisone. Start by taking 6 pills a day, which is 60 mg. Reduce the quantity by 1 pill every 3 days until they are gone. After this he can resume your normal daily prednisone dose. Continue to take your other regularly prescribed medications as directed including your azithromycin. Followup Plan Disposition: Home Follow-up plan Follow-up with primary care physician in 1-2 weeks. Discharge Diet: Heart Healthy Discharge Activity: Limited until seen by PCP Patient Instructions Please follow-up with your primary care physician in 1-2 weeks. Continue your home medications, and seek medical attention if you start to have worsening shortness of breath, chest pain, dizziness. Follow-up Provider: AYAKA JEFF MD Follow-up with PCP in: 1 week Time spent Greater than 35 minutes. Attending Statement I have seen and evaluated the patient at bedside in addition to directly supervising care provided by resident physician Dr Cota on 03/10/2017. I agree with above documentation. Francois Cota DO Mar 10, 2017 11:29 Jono Mcdaniel DO Mar 11, 2017 07:30
[2017-03-10 11:56] VITALS: BP 156/71; PULSE 98; RESP 24; O2SAT 92
--- NOTE | 2017-03-10 13:18 | NUR ---
Social Work: Discharge/Multidisciplinary Rounds D: Pt discussed in multidisciplinary rounds; the patient is medically stable for discharge home. No needs or barriers identified. Patient has capacity for self-care. HAND INSERTER OPERATOR met with the patient at bedside to confirm discharge plan and reassess for unmet discharge needs. patient confirms his plan to d/c home and states that his will be transporting him. he has no concerns about his discharge and states that he can ambulate short distances so that he can get home and use his powerchair. Patient does not want any supportive services from home health and denies any other outpatient needs. A: Pt who is I at baseline and lives at home alone. P: Anticipate pt to discharge home via POV and no identified sw needs. EVERETT Flor
--- NOTE | 2017-03-10 14:25 | NUR ---
Discharge Pt discharged to home with transportation with his via private cab. Pt's IV was dc'd intact. Pt's follow up appointment, medication changes and discharge instructions were reviewed. All pt's questions were answered and pt voiced understanding. Pt's belongings were gathered for transportation home with pt. Pt was escorted by CENTRIFUGAL SCREEN TENDER to hotel lobby to await cabs arrival.
== END 2017-03-10 13:52 | disposition home or self-care (01) | DRG 189 ==
LOC: EDBD 17:36 → SED 17:36 → PCC 21:34
PROVIDERS: ADMIT Hospitalist; ATTEND Family Medicine
PROC: 5A09458 Assistance with Respiratory Ventilation, 24-96 Consecutive Hours, Intermittent Positive Airway Pressure (ICD-10-PCS; principal; 2017-03-08)
PROC: 4A033R1 Measurement of Arterial Saturation, Peripheral, Percutaneous Approach (ICD-10-PCS; 2017-03-08)
DX: J96.21 Acute and chronic respiratory failure with hypoxia (principal); J44.1 Chronic obstructive pulmonary disease with (acute) exacerbation; E87.2 Acidosis; Z79.82 Long term (current) use of aspirin; Z79.52 Long term (current) use of systemic steroids; Z99.81 Dependence on supplemental oxygen; Z95.5 Presence of coronary angioplasty implant and graft; I25.2 Old myocardial infarction; Z87.891 Personal history of nicotine dependence; I10 Essential (primary) hypertension